=== PATIENT | female | born 2000 | race Caucasian/White ===

== ENCOUNTER → 2023-04-13 09:04 | Outpatient (BNVA) | payer BC, SELFPAY | PROVIDERS: Visit Provider Family Medicine | DX: E06.3 Autoimmune thyroiditis (principal); Z86.39 Personal history of other endocrine, nutritional and metabolic disease; E28.2 Polycystic ovarian syndrome; L70.0 Acne vulgaris | CPT/HCPCS: 80053; 82672; 83001; 83002; 84144; 84439; 84443; 85025; 86376 ==

== ENCOUNTER 2023-04-20 06:27 | Outpatient (CLI) | payer BC, SELFPAY ==
--- NOTE | 2023-04-20 06:45 | US_ITS ---
WS: [id number] US pelv w/transvag [id number] HISTORY: PCOS COMPARISON: None available. Uterus: 6.8 cm x 5.1 cm x 3.5 cm. Mobile uterus. Anteverted uterus becomes retroverted on transvaginal imaging. No fibroid or mass. Endometrium: 0.5 cm. Normal. Right ovary: 3.4 cm x 3.6 cm x 3.4 cm. Ovary is top normal size. There are multiple follicles through out the ovary. These are distributed throughout the ovary and not only in a peripheral distribution. Follicles measure up to 10 mm. The number of follicles is approaching 20. Left ovary: 3.3 cm x 1.9 cm x 3.5 cm. Top normal size ovary with multiple small follicles. Follicles are distributed throughout the ovary but also in a peripheral distribution ranging up to 9 mm in size . Number of follicles approaching 20 normal vascularity. Small amount of free fluid. IMPRESSION: 1. There are numerous small follicles throughout each ovary. The number of follicles is approaching 2 0. 20 is the number of follicles that increases the probability of POCS by imaging criteria. The ovar ies are not significantly enlarged. 2. Normal endometrium.
== END 2023-04-20 06:28 | disposition home or self-care (01) ==
PROVIDERS: PCP Family Medicine; Visit Provider Family Medicine
DX: E28.2 Polycystic ovarian syndrome (principal)
CPT/HCPCS: 76830; 76856

== ENCOUNTER → 2023-05-08 12:27 | Outpatient (BNVA) | payer BC, SELFPAY | PROVIDERS: PCP Family Medicine; Visit Provider Family Medicine | DX: Z32.00 Encounter for pregnancy test, result unknown (principal); F32.1 Major depressive disorder, single episode, moderate; E06.3 Autoimmune thyroiditis; E28.2 Polycystic ovarian syndrome; L70.0 Acne vulgaris | CPT/HCPCS: 84702 ==

== ENCOUNTER → 2023-10-05 11:56 | Outpatient (BNVA) | payer BC, SELFPAY | PROVIDERS: PCP Family Medicine; Visit Provider Family Medicine | DX: Z34.90 Encounter for supervision of normal pregnancy, unspecified, unspecified trimester | CPT/HCPCS: 84702 ==